=== PATIENT | female | born 1960 | race Caucasian/White ===

== ENCOUNTER 2019-10-11 23:29 | Emergency (ER) | payer OTHER ==
[~2019-10-11] VITALS: Ht 160 cm; Wt 67.1 kg
[~2019-10-11 23:29] MED LIST: ATENOLOL-CHLORT1 TA2; LEVOFLOXACIN250 MG; URELLE TABLET1 TAB
[2019-10-11] MEDS ORDERED: ASPIR 8181 MG (23:50)
== END 2019-10-12 03:10 | disposition home or self-care (01) ==
LOC: ER 23:29
DX: R04.0 Epistaxis (principal)